=== PATIENT | female | born 1970 | race Caucasian/White ===

== ENCOUNTER → 2021-08-14 | Outpatient (CLI) | payer OTHER ==
[~2021-08-14] MED LIST: AMOXICILLIN500 MG PO; BACTRIM DS 8001 TA1 PO; FLOVENT HF0.044 MG/A INH; IBU-200200 MG PO; LIDEX0.05% T; LOPRESSOR50 MG PO; MEDROL DOSEPAK4 MG PO; MOTRIN600 MG PO; MOTRIN800 MG PO; PENICILLIN VK500 MG PO; PREDNICOT20 MG PO; PREDNISONE10 MG PO; PROVENTIL0.09 MG/A1 INH; PROVENTIL0.09 MG/AC; PROZAC10 MG; PROZAC20 MG PO; RANITIDINE150 MG PO; TYLENOL W/CODEI1 TA2 PO; VICODIN 5/500 505 MG PO; VICODIN ES 7501 TAB PO; XANAX0.5 MG; XANAX0.5 MG PO; ZITHROMAX Z PA250 MG PO
== END | disposition home or self-care (01) ==
LOC: COVID19 15:40
PROVIDERS: ATTEND Internal Medicine
DX: Z20.822 Contact with and (suspected) exposure to COVID-19 (principal)